=== PATIENT | male | born 1965 | race Caucasian/White ===

== ENCOUNTER 2021-08-23 07:01 | Day surgery (SDC) | payer OTHER ==
[2021-08-23 07:35] VITALS: BMI 33.0
[2021-08-23] MEDS ORDERED: MIDAZOLAM HCL 2 MG/2 ML SINGLE DOSE VIAL ONE (08:45)
[2021-08-23] MEDS ORDERED: PROPOFOL 20 ML ONE ×2 (08:45)
[2021-08-23] MEDS ORDERED: BUPIVACAINE HCL/PF 2.5 MG/ML - 30 ML VIAL IJ ONE (08:52)
[2021-08-23] MEDS ORDERED: EPINEPHrine 1:1,000 1 MG/1 ML - 30ML VIAL (INJECTION) ONE (08:59)
[2021-08-23] MEDS ORDERED: ceFAZolin SODIUM 1 GM VIAL ONE (09:20)
[2021-08-23] MEDS ORDERED: ONDANSETRON 4 MG/2 ML VIAL ONE (09:36)
[2021-08-23] MEDS ORDERED: KETOROLAC TROMETHAMINE 30 MG/1 ML VIAL ONE (09:36)
[2021-08-23] MEDS ORDERED: DEXAMETHASONE SOD PHOSPHATE 4 MG/1 ML VIAL ONE (09:36)
[2021-08-23] MEDS ORDERED: ONDANSETRON 4 MG/2 ML VIAL IVPUSH PRN (09:58)
[2021-08-23] MEDS ORDERED: oxyCODONE HCL 5 MG TABLET PO PRN (09:58)
[2021-08-23] MEDS ORDERED: LACTATED RINGERS SOLUTION 1,000 ML IV SCH (10:00)
[2021-08-23 11:05] VITALS: PULSE 78; TEMP 97.8
[2021-08-23 11:21] VITALS: BP 118/74
== END 2021-08-23 11:25 | disposition home or self-care (01) ==
LOC: FASU 07:01
PROVIDERS: ATTEND Orthopaedic Surgery
PROC: 0SBC4ZZ Excision of Right Knee Joint, Percutaneous Endoscopic Approach (ICD-10-PCS; 2021-08-23)
PROC: 0SBC4ZZ Excision of Right Knee Joint, Percutaneous Endoscopic Approach (ICD-10-PCS; principal; 2021-08-23 09:32)
DX: S83.241A Other tear of medial meniscus, current injury, right knee, initial encounter (principal); S83.281A Other tear of lateral meniscus, current injury, right knee, initial encounter; S83.8X1A Sprain of other specified parts of right knee, initial encounter; M65.861 Other synovitis and tenosynovitis, right lower leg; X58.XXXA Exposure to other specified factors, initial encounter; Y93.9 Activity, unspecified; Y92.9 Unspecified place or not applicable
CPT/HCPCS: 94760